=== PATIENT | female | born 1980 ===

== ENCOUNTER 2018-07-09 14:41 | Emergency (ER) | payer OTHER ==
[2018-07-09 15:12] VITALS: TEMP 98.3
[2018-07-09 16:40] LABS: BASO # 0.1 K/uL (0.0-0.2); BASO % 0.8 % (0.0-2.0); EOS # 0.1 K/uL (0.0-0.7); EOS % 1.1 % (0.0-4.0); HEMOGLOBIN 13.4 g/dL (12.0-16.0); LYMPH # 2.9 K/uL (1.0-4.3); LYMPH % 31.1 % (20.0-40.0); MEAN CELL VOLUME 84.7 fl (81.0-99.0); MEAN CORPUSCULAR HEMOGLOBIN 27.5 pg (27.0-31.0); MEAN CORPUSCULAR HGB CONC 32.5 g/dL (33.0-37.0); MEAN PLATELET VOLUME 7.7 fl (7.2-11.7); MONO # 0.6 K/uL (0.0-0.8); MONO % 6.6 % (0.0-10.0); NEUT # 5.7 K/uL (1.8-7.0); NEUT % 60.4 % (50.0-75.0); NRBC % 0.1 % (0.0-0.0); RBC 4.87 Mil/uL (3.80-5.20); RED CELL DISTRIBUTION WIDTH 14.1 % (11.5-14.5); WHITE BLOOD COUNT 9.4 K/uL (4.8-10.8)
[2018-07-09 16:49] LABS: ALB/GLOB RATIO 1.3 (1.0-2.1); ALBUMIN 4.7 g/dL (3.5-5.0); ALT/SGPT 39 U/L (9-52); AST/SGOT 34 U/L (14-36); BLOOD UREA NITROGEN 11 mg/dl (7-17); CALCIUM 9.2 mg/dL (8.4-10.2); GFR NON-AFRICAN AMERICAN > 60
--- NOTE | 2018-07-09 16:59 | RAD ---
Date of service: 07/09/2018 HISTORY: Dizziness COMPARISON: No prior. TECHNIQUE: Chest PA and lateral FINDINGS: LINES AND TUBES: None. LUNG AND PLEURA: The lungs are well inflated and clear. There is a subcentimeter calcified granuloma in the left mid lung. No pleural effusion or pneumothorax. HEART AND MEDIASTINUM: The heart is not enlarged. No aortic atherosclerotic calcification present. The hilar and mediastinal contours are within normal limits. SKELETAL STRUCTURES: The bony structures are within normal limits for the patient's age. VISUALIZED UPPER ABDOMEN: Normal. OTHER FINDINGS: None. IMPRESSION: No active pulmonary disease.
--- NOTE | 2018-07-09 17:30 | CT ---
Date of service: 07/09/2018 PROCEDURE: CT HEAD WITHOUT CONTRAST. HISTORY: Headache and dizziness COMPARISON: None available. TECHNIQUE: Axial computed tomography images were obtained through the head/brain without intravenous contrast. Radiation dose: Total exam DLP = 719.77 mGy-cm. This CT exam was performed using one or more of the following dose reduction techniques: Automated exposure control, adjustment of the mA and/or kV according to patient size, and/or use of iterative reconstruction technique. FINDINGS: HEMORRHAGE: No intracranial hemorrhage. BRAIN: Horn-white matter differentiation is preserved. There is no mass, mass effect or abnormal extra-axial fluid collection. There is no territorial infarction. The midline sagittal structures are normal. VENTRICLES: The ventricles are normal in size, shape and configuration. CALVARIUM: There is no calvarial fracture or extracranial soft tissue swelling. PARANASAL SINUSES: Predominantly clear. MASTOID AIR CELLS: Predominantly clear. OTHER FINDINGS: None. IMPRESSION: No acute intracranial abnormality.
--- NOTE | 2018-07-09 17:51 | CT ---
Date of service: 07/09/2018 PROCEDURE: CT Cervical Spine without contrast HISTORY: Neck pain, back pain. No history of trauma COMPARISON: None available. TECHNIQUE: Axial computed tomography images were obtained of the cervical spine without the use of intravenous contrast. Coronal and sagittal reformatted images were created and reviewed. Radiation dose: Total exam DLP = 245.85 mGy-cm. This CT exam was performed using one or more of the following dose reduction techniques: Automated exposure control, adjustment of the mA and/or kV according to patient size, and/or use of iterative reconstruction technique. FINDINGS: VERTEBRAE: No fracture. Normal alignment. No destructive bony lesion. DISCS/SPINAL CANAL/NEURAL FORAMINA: No significant central canal or neural foraminal stenosis. Discs heights are grossly preserved. PARASPINAL SOFT TISSUES: Unremarkable. OTHER FINDINGS: None. IMPRESSION: Unremarkable CT of the cervical spine. In this clinical setting, MRI would be more sensitive and accurate modality assessment of symptoms provided above.
--- NOTE | 2018-07-09 18:01 | ED PDOC ---
HPI: General Adult Time Seen by Provider: 07/09/18 15:27 Chief Complaint (Nursing): Dizziness/Lightheaded Chief Complaint (Provider): Headache, neck pain, dizziness History Per: Patient History/Exam Limitations: no limitations Onset/Duration Of Symptoms: Days Have you had recent travel within the past 21 days to any of the following countries: [place], [place], [place] or [place]?: No Current Symptoms Are (Timing): Still Present Additional Complaint(s): 37 yo female with no medical problems presents for evaluation of headache, dizziness and neck pain. PT reports headache for 3 months associated with dizziness. PT reports 2 weeks of neck pain worse when she looks up. PT states she has been taking tylenol for pain but it is not helping. PT also reports pain traveling down the right arm with extension of the neck. No chest pain, no SOB Past Medical History Reviewed: Historical Data, Nursing Documentation, Vital Signs Vital Signs: Last Vital Signs Temp 98.3 F 07/09/18 15:07 Pulse 53 L 07/09/18 15:07 Resp 16 07/09/18 15:07 BP 102/51 L 07/09/18 15:07 Pulse Ox 100 07/09/18 15:07 - Medical History PMH: Cardia Arrhythmia (Tachycardia, as per patient however bradycardia on EKG), HTN - Surgical History Surgical History: No Surg Hx - Family History Family History: States: No Known Family Hx - Living Arrangements Living Arrangements: With Family - Home Medications Home Medications: Ambulatory Orders Medication Instructions Recorded Cyclobenzaprine [Cyclobenzaprine 10 mg PO Q8H PRN #12 tab 07/09/18 HCl] Ibuprofen [Motrin Tab] 800 mg PO Q6H PRN #20 tab 07/09/18 - Allergies Allergies/Adverse Reactions: Allergies Allergy/AdvReac Type Severity Reaction Status Date / Time No Known Allergies Allergy Verified 07/09/18 15:07 Review of Systems ROS Statement: Except As Marked, All Systems Reviewed And Found Negative Constitutional: Negative for: Fever, Chills ENT: Negative for: Ear Discharge Cardiovascular: Negative for: Chest Pain, Palpitations, Orthopnea Respiratory: Negative for: Cough, Shortness of Breath Gastrointestinal: Negative for: Nausea, Vomiting, Abdominal Pain, Diarrhea Musculoskeletal: Positive for: Neck Pain Neurological: Positive for: Headache. Negative for: Weakness, Numbness Psych: Negative for: Anxiety Physical Exam - Reviewed Nursing Documentation Reviewed: Yes Vital Signs Reviewed: Yes - Physical Exam Appears: Positive for: Well, Non-toxic, No Acute Distress Head Exam: Positive for: ATRAUMATIC, NORMAL INSPECTION, NORMOCEPHALIC Skin: Positive for: Normal Color, Warm, DRY Eye Exam: Positive for: Normal appearance ENT: Positive for: Normal ENT Inspection Neck: Positive for: Normal, Painless ROM Cardiovascular/Chest: Positive for: Regular Rate, Rhythm Respiratory: Positive for: Normal Breath Sounds. Negative for: Accessory Muscle Use, Respiratory Distress Back: Positive for: Normal Inspection, Vertebral Tenderness (C-spine ) Extremity: Positive for: Normal ROM. Negative for: Deformity, Swelling Neurologic/Psych: Positive for: Alert, Oriented - Laboratory Results Result Diagrams: 07/09/18 16:34 07/09/18 16:34 - ECG O2 Sat by Pulse Oximetry: 100 Pulse Ox Interpretation: Normal Medical Decision Making Medical Decision Making: Head and neck CT normal. Urine preg (-) Urine dip normal. Pt feels better on re-evaluation. Disposition - Clinical Impression Clinical Impression: Muscular pain - Patient ED Disposition Is Patient to be Admitted: No Counseled Patient/Family Regarding: Diagnosis, Need For Followup, Rx Given - Disposition Disposition: Routine/Home Disposition Time: 18:41 Condition: GOOD Prescriptions: Cyclobenzaprine [Cyclobenzaprine HCl] 10 mg PO Q8H PRN #12 tab PRN Reason: Muscle Spasm Ibuprofen [Motrin Tab] 800 mg PO Q6H PRN #20 tab PRN Reason: Pain Instructions: Muscle and Bone Pain (DC) Forms: [employer] (Serbian)
[2018-07-09 20:03] VITALS: BP 107/61; PULSE 60; RESP 17; O2SAT 99
--- NOTE | 2018-07-10 08:00 | CARD ---
APPROVED REPORT Date of service: 07/09/2018 EKG Measurement Heart [id number] CO [id number] <Conclusion> Sinus bradycardia Otherwise normal ECG
== END 2018-07-09 20:03 | disposition home or self-care (01) ==
LOC: H.ER 14:41
DX: M79.18 Myalgia, other site (principal); I10 Essential (primary) hypertension

== ENCOUNTER 2018-08-20 13:50 | Inpatient (IN) | payer MEDICAID, SELFPAY ==
--- NOTE | 2018-08-20 14:29 | ED PDOC ---
HPI: General Adult Time Seen by Provider: 08/20/18 14:12 Chief Complaint (Nursing): Fever History Per: Patient Additional Complaint(s): Referred from [facility] for evaluation of possible active TB. Pt is from [facility] and has been having sxs of non-productive cough assoc with intermittent fever. Cough has been present x 3 weeks. Denies SOB. Has had 8 lb weight loss since Aug 10. Denies night sweats. Multiple CXRs done with granuloma seen 07/09. Past Medical History Vital Signs: Last Vital Signs Temp 98.0 F 08/20/18 13:57 Pulse 58 L 08/20/18 13:57 Resp 16 08/20/18 13:57 BP 115/60 08/20/18 13:57 Pulse Ox 98 08/20/18 13:57 - Medical History PMH: Cardia Arrhythmia (Tachycardia, as per patient however bradycardia on EKG), HTN - Family History Family History: States: Unknown Family Hx - Home Medications Home Medications: Ambulatory Orders Medication Instructions Recorded Cyclobenzaprine [Cyclobenzaprine 10 mg PO Q8H PRN #12 tab 07/09/18 HCl] Ibuprofen [Motrin Tab] 800 mg PO Q6H PRN #20 tab 07/09/18 - Allergies Allergies/Adverse Reactions: Allergies Allergy/AdvReac Type Severity Reaction Status Date / Time No Known Allergies Allergy Verified 08/20/18 13:56 Review of Systems ROS Statement: Except As Marked, All Systems Reviewed And Found Negative Constitutional: Positive for: Fever, Weight loss Respiratory: Positive for: Cough Physical Exam - Reviewed Nursing Documentation Reviewed: Yes Vital Signs Reviewed: Yes - Physical Exam Appears: Positive for: Non-toxic, No Acute Distress Head Exam: Positive for: ATRAUMATIC, NORMAL INSPECTION, NORMOCEPHALIC Skin: Positive for: Normal Color, Warm, DRY Eye Exam: Positive for: EOMI, Normal appearance, PERRL ENT: Positive for: Normal ENT Inspection Neck: Positive for: Normal, Painless ROM Cardiovascular/Chest: Positive for: Regular Rate, Rhythm Respiratory: Positive for: CNT, Normal Breath Sounds Gastrointestinal/Abdominal: Positive for: Normal Exam, Soft Back: Positive for: Normal Inspection Extremity: Positive for: Normal ROM Lymphatic: Negative for: Adenopathy Neurologic/Psych: Positive for: Alert, Oriented - Laboratory Results Result Diagrams: 08/20/18 14:27 08/20/18 14:27 - ECG O2 Sat by Pulse Oximetry: 98 Disposition - Clinical Impression Clinical Impression: Cough - Patient ED Disposition Is Patient to be Admitted: Yes - Disposition Disposition Time: 16:05 Condition: FAIR Forms: [facility] (Croatian) - Pt Status Changed To: Hospital Disposition Of: Inpatient - Admit Certification Admit to Inpatient:: After my assessment, the patient will require hospitalization for at least two midnights. This is because of the severity of symptoms shown, intensity of services needed, and/or the medical risk in this p atient being treated as an outpatient. - POA Present On Arrival: None
[2018-08-20 14:31] LABS: BASO # 0.1 K/uL (0.0-0.2); BASO % 0.6 % (0.0-2.0); EOS # 0.2 K/uL (0.0-0.7); EOS % 1.9 % (0.0-4.0); HEMOGLOBIN 12.9 g/dL (12.0-16.0); LYMPH # 2.6 K/uL (1.0-4.3); LYMPH % 27.3 % (20.0-40.0); MEAN CELL VOLUME 86.7 fl (81.0-99.0); MEAN CORPUSCULAR HEMOGLOBIN 27.9 pg (27.0-31.0); MEAN CORPUSCULAR HGB CONC 32.2 g/dL (33.0-37.0); MEAN PLATELET VOLUME 7.6 fl (7.2-11.7); MONO # 0.5 K/uL (0.0-0.8); MONO % 5.1 % (0.0-10.0); NEUT # 6.2 K/uL (1.8-7.0); NEUT % 65.1 % (50.0-75.0); NRBC % 0.1 % (0.0-0.0); RBC 4.62 Mil/uL (3.80-5.20); RED CELL DISTRIBUTION WIDTH 14.1 % (11.5-14.5); WHITE BLOOD COUNT 9.6 K/uL (4.8-10.8)
[2018-08-20 14:54] LABS: BLOOD UREA NITROGEN 11 mg/dl (7-17); CALCIUM 9.3 mg/dL (8.4-10.2); GFR NON-AFRICAN AMERICAN > 60
[2018-08-20 14:55] LABS: ALB/GLOB RATIO 1.2 (1.0-2.1); ALBUMIN 4.6 g/dL (3.5-5.0); ALT/SGPT 41 U/L (9-52); AST/SGOT 71 U/L (14-36)
--- NOTE | 2018-08-20 16:08 | RAD ---
Date of service: 08/20/2018 HISTORY: cough +ve quanteferon gold COMPARISON: 07/09/2018 FINDINGS: LUNGS: The left mid lung zone approximately 5 mm nodule compatible with a granuloma is unchanged with the prior exam. No interval nodules are cavity seen. No interval consolidation noted. No pleural effusion PLEURA: Seen. CARDIOVASCULAR: No aortic atherosclerotic calcification present. Normal cardiac size. No pulmonary vascular congestion. No hilar or mediastinal lymphadenopathy noted. OSSEOUS STRUCTURES: No significant abnormalities. VISUALIZED UPPER ABDOMEN: Normal. OTHER FINDINGS: None. IMPRESSION: Left mid lung zone 4 to 5 mm granuloma. Unchanged. No interval nodules consolidation, hilar mediastinal lymphadenopathy seen. No cavitary lesions noted.
[2018-08-20] MEDS ORDERED: Sodium Chloride 3% for Inhalation 4 ML VIAL.NEB IH PRN (16:40)
--- NOTE | 2018-08-20 16:55 | CP.PCM.HP ---
<Randall Davies - Last Filed: 08/20/18 17:02> History of Present Illness - History of Present Illness History of Present Illness: HPI: Pt is a 37 y/o female with hx of a Incidental granuloma found on Cxray (07/08/18) and + Quanteferon sent to ED from chest clinic as patient reported cough, fever/chills, and weight loss in last 2 weeks. She denies any recent travel. States her two children at home are also sick with cough and occasional fevers. She denies hemoptysis or night sweats. PMHX: Chronic neck and R. shoulder pain PSurgHx: denies FmHx: denies Social: Lives with and 5 children (1 son and 4 daughters) never smoked, denies heavy alcohol use, immigrated from [facility] years ago ED Course: Vitals stable, O2 sat 99 on rm air Pt does not appear to be in any respiratory distress CBC: 9.6>12.9/40<333 CMP: WNL, AST- 71 Cxray: 5mm nodule in left lung mid zone, no interval change in size, no cavitary lesions or infiltrates ID Consulted, Dr. Bar- Rule out active TB with 3 AFB Culture Present on Admission - Present on Admission Any Indicators Present on Admission: No Past Patient History - Past Social History Smoking Status: Never Smoked - CARDIAC Hx Cardia Arrhythmia: Yes (Tachycardia, as per patient however bradycardia on EKG) Hx Hypertension: Yes - PSYCHIATRIC Hx Substance Use: No - SURGICAL HISTORY Hx Surgeries: Yes Hx Tubal Ligation: Yes - ANESTHESIA Hx Anesthesia: Yes Meds Allergies/Adverse Reactions: Allergies Allergy/AdvReac Type Severity Reaction Status Date / Time No Known Allergies Allergy Verified 08/20/18 13:56 Physical Exam - Constitutional Appears: No Acute Distress - Eye Exam Eye Exam: Normal appearance - ENT Exam ENT Exam: Mucous Membranes Moist - Respiratory Exam Respiratory Exam: Clear to Auscultation Bilateral. absent: Accessory Muscle Use, Rales, Wheezes - Cardiovascular Exam Cardiovascular Exam: REGULAR RHYTHM, +S1, +S2. absent: Systolic Murmur - GI/Abdominal Exam GI & Abdominal Exam: Soft. absent: Tenderness - Extremities Exam Extremities exam: Negative for: pedal edema - Neurological Exam Neurological exam: Alert, Oriented x3 - Psychiatric Exam Psychiatric exam: Normal Affect - Skin Skin Exam: Normal Color Results - Vital Signs Recent Vital Signs: Last Vital Signs Temp 98.0 F 08/20/18 13:57 Pulse 58 L 08/20/18 13:57 Resp 16 08/20/18 13:57 BP 115/60 08/20/18 13:57 Pulse Ox 98 08/20/18 16:05 - Labs Result Diagrams: 08/20/18 14:27 08/20/18 14:27 Labs: Laboratory Results - last 24 hr 08/20/18 08/20/18 14:27 14:27 WBC 9.6 RBC 4.62 Hgb 12.9 Hct 40.0 MCV 86.7 D MCH 27.9 MCHC 32.2 L RDW 14.1 Plt Count 333 MPV 7.6 Neut % (Auto) 65.1 Lymph % (Auto) 27.3 Casey % (Auto) 5.1 Eos % (Auto) 1.9 Baso % (Auto) 0.6 Neut # (Auto) 6.2 Lymph # (Auto) 2.6 Casey # (Auto) 0.5 Eos # (Auto) 0.2 Baso # (Auto) 0.1 Sodium 138 Potassium 4.8 Chloride 103 Carbon Dioxide 26 Anion Gap 14 BUN 11 Creatinine 0.6 L Est GFR ( Amer) > 60 Est GFR (Non-Af Amer) > 60 Random Glucose 90 Calcium 9.3 Total Bilirubin 0.5 AST 71 H D ALT 41 Alkaline Phosphatase 88 Total Protein 8.6 H Albumin 4.6 Globulin 3.9 Albumin/Globulin Ratio 1.2 Assessment & Plan - Assessment and Plan (Free Text) Assessment: Pt is a 37 y/o female with hx of a Incidental granuloma found on Cxray (07/08/18) and + Quanteferon sent to ED from chest clinic as patient reported cough, fever/chills, and weight loss in last 2 weeks. #Cough #Granuloma on Chest Xray, 5mm, no cavitary lesions #Quantiferon + -Need to assess if pt has Active vs Latent TB -AFB Culture x3 -Airborne Isolation -ID on board, Dr. Bar -Monitor Respiratory Status Discussed case with Dr. Hart <Sean Hart D - Last Filed: 08/20/18 19:22> Results - Vital Signs Recent Vital Signs: Last Vital Signs Temp 98.0 F 08/20/18 13:57 Pulse 73 08/20/18 16:43 Resp 18 08/20/18 16:43 BP 117/67 08/20/18 16:43 Pulse Ox 99 08/20/18 16:43 - Labs Result Diagrams: 08/20/18 14:27 08/20/18 14:27 Labs: Laboratory Results - last 24 hr 08/20/18 08/20/18 08/20/18 14:27 14:27 17:52 WBC 9.6 RBC 4.62 Hgb 12.9 Hct 40.0 MCV 86.7 D MCH 27.9 MCHC 32.2 L RDW 14.1 Plt Count 333 MPV 7.6 Neut % (Auto) 65.1 Lymph % (Auto) 27.3 Casey % (Auto) 5.1 Eos % (Auto) 1.9 Baso % (Auto) 0.6 Neut # (Auto) 6.2 Lymph # (Auto) 2.6 Casey # (Auto) 0.5 Eos # (Auto) 0.2 Baso # (Auto) 0.1 Sodium 138 Potassium 4.8 Chloride 103 Carbon Dioxide 26 Anion Gap 14 BUN 11 Creatinine 0.6 L Est GFR ( Amer) > 60 Est GFR (Non-Af Amer) > 60 Random Glucose 90 Calcium 9.3 Total Bilirubin 0.5 AST 71 H D ALT 41 Alkaline Phosphatase 88 Total Protein 8.6 H Albumin 4.6 Globulin 3.9 Albumin/Globulin Ratio 1.2 Influenza Typ A,B (EIA) Negative for flu a/b Attending/Attestation - Attestation I have personally seen and examined this patient.: Yes I have fully participated in the care of the patient.: Yes I have reviewed all pertinent clinical information: Yes Notes (Text): 08/20/18 19:13 Patient seen and examined with resident. Case discussed and agreed with assessment and plan of management. Patient was seen in [facility] and was found to have granulomatous lesion and was reactive with quantiferon test for TB. She was referred to Chest Clinic who in turn referred her here to be put on isolation while waiting for 3 sets of sputum AFB. Patient admitted to dry cough and loss of weight.
--- NOTE | 2018-08-20 17:11 | CP.PCM.CON ---
History of Present Illness - History of Present Illness History of Present Illness: 37 y/o female sent to ED from [facility] chest clinic because patient reported cough, fever/chills, and weight loss in last 2 weeks. work up revealed small granuloma and + Quantiferon Because of this she was advised to come to ER She is now being admittewd to isolation bed to r/o active TB If active infection ruled out by 3 negative smears she can take INH prophylaxis for latent TB PMHX: Chronic neck and shoulder pain Travel - negative PSurgHx: denies FmHx: denies Social: Lives with and 5 children (1 son and 4 daughters) never smoked, denies heavy alcohol use, immigrated from [place] [facility] [place] years ago Review of Systems - Review of Systems All systems: reviewed and no additional remarkable complaints except - Constitutional Constitutional: As Per HPI - EENT Eyes: absent: As Per HPI, Blind Spots, Blurred Vision, Change in Vision, Decreased Night Vision, Diplopia, Discharge, Dry Eye, Exophthalmos, Floaters, Irritation, Itchy Eyes, Loss of Peripheral Vision, Pain, Photophobia, Requires Corrective Lenses, Sees Flashes, Spots in Vision, Tunnel Vision, Other Visual Disturbances, Loss of Vision, Other Ears: absent: As Per HPI, Decreased Hearing, Ear Discharge, Ear Pain, Tinnitus, Abnormal Hearing, Disequilibrium, Dizziness, Other Nose/Mouth/Throat: absent: As Per HPI, Epistaxis, Nasal Congestion, Nasal Di scharge, Nasal Obstruction, Nasal Trauma, Nose Pain, Post Nasal Drip, Sinus Pain, Sinus Pressure, Bleeding Gums, Change in Voice, Dental Pain, Dry Mouth, Dysphagia, Halitosis, Hoarsness, Lip Swelling, Mouth Lesions, Mouth Pain, Odynophagia, Sore Throat, Throat Swelling, Tongue Swelling, Facial Pain, Neck Pain, Neck Mass, Other - Breasts Breasts: absent: As Per HPI, Change in Shape, Mass, Pain, Nipple Discharge, Nipple Inversion, Skin Changes, Swelling, Other - Cardiovascular Cardiovascular: absent: As Per HPI, Acrocyanosis, Chest Pain, Chest Pain at Rest, Chest Pain with Activity, Claudication, Diaphoresis, Dyspnea, Dyspnea on Exertion, Edema, Irregular Heart Rhythm, Pain Radiating to Arm/Neck/Jaw, Leg Edema, Leg Ulcers, Lightheadedness, Orthopnea, Palpitations, Paroxysmal Nocturnal Dyspnea, Pedal Edema, Radiating Pain, Rapid Heart Rate, Slow Heart Rate, Syncope, Other - Respiratory Respiratory: As Per HPI - Gastrointestinal Gastrointestinal: absent: As Per HPI, Abdominal Pain, Belching, Bloating, Change in Bowel Habits, Change in Stool Character, Coffee Ground Emesis, Constipation, Cramping, Diarrhea, Dyspepsia, Dysphagia, Early Satiety, Excessive Flatus, Fecal Incontinence, Heartburn, Hematemesis, Hematochezia, Loose Stools, Melena, Nausea, Odynophagia, Temesmus, Vomiting, Other - Genitourinary Genitourinary: absent: As Per HPI, Change in Urinary Stream, Difficulty Urinating, Dysuria, Flank Pain, Hematuria, Pyuria, Nocturia, Urinary Incontinence, Urinary Frequency, Urinary Hesitance, Urinary Urgency, Voiding Freq/Small Amts, Freq UTI, Hx Renal/Bladder Calculi, Hx /Renal Surgery, Bladder Distension, Other - Reproductive: Female Reproductive:Female: absent: As Per HPI, Amenorrhea, Amenorrhea/ Control, Currently Menstual, Cycle <21 Days, Cycle >35 Days, Cycle Variable, Menses 1-7 Days, Menses >/= 8 Days, Menses Variable, Cycle > 4 Weeks Between, No Menses for 6 Months, Heavy Menses, Light Menses, Normal Menses, Spotting Between Cycles, S/P Hysterectomy, Menopausal, Post Menopausal, Premenarche, Abnormal Vaginal Bleeding, Dysmenorrhea, Dyspareunia, Genital Lesions, Genital Pruritis, Pelvic Pain, Prolapse Symptoms, Sexual Dysfunction, Vaginal Discharge, Vaginal Dryness, Vaginal Odor, Vaginal Pruritis, Other - Menstruation Menstruation: absent: As Per HPI, Amenorrhea, Amenorrhea/ Control, Currently Menstual, Cycle <21 Days, Cycle >35 Days, Cycle Variable, Menses 1-7 Days, Menses >/= 8 Days, Menses Variable, Cycle > 4 Weeks Between, No Menses for 6 Months, Heavy Menses, Light Menses, Normal Menses, Spotting Between Cycles, S/P Hysterectomy, Menopausal, Post Menopausal, Premenarche, Abnormal Vaginal Bleeding, Dysmenorrhea, Other - Musculoskeletal Musculoskeletal: absent: As Per HPI, Abnormal Gait, Arthralgias, Atrophy, Back Pain, Deformity, Joint Swelling, Limited Range of Motion, Loss of Height, Muscle Cramps, Muscle Weakness, Myalgias, Neck Pain, Numbness, Radiating Pain into Limb, Stiffness, Tingling, Other - Integumentary Integumentary: absent: As Per HPI, Acne, Alopecia, Bleeding Lesions, Change in Hair, Change in Nails, Change in Pigmentation, Changing Lesions, Dry Skin, Erythema, Furuncle, Hirsutism, Lesions, New Lesions, Non-Healing Lesions, Photosensitivity, Pruritus, Rash, Skin Pain, Skin Ulcer, Sores, Striae, Swelling, Unusual Bruising, Wounds, Jaundice, Other - Neurological Neurological: absent: As Per HPI, Abnormal Gait, Abnormal Hearing, Abnormal Movements, Abnormal Speech, Behavioral Changes, Burning Sensations, Confusion, Convulsions, Disequilibrium, Dizziness, Numbness, Focal Weakness, Frequent Falls, Headaches, Lack of Coordination, Loss of Vision, Memory Loss, Paresthesias, Radicular Pain, Restless Legs, Sensory Deficit, Syncope, Tingling, Tremor, Vertigo, Weakness, Other Visual Disturbances, Other - Psychiatric Psychiatric: absent: As Per HPI, Abnormal Sleep Pattern, Anhedonia, Anxiety, Auditory Hallucinations, Behavioral Changes, Change in Appetite, Change in Libido, Confusion, Depression, Difficulty Concentrating, Hallucinations, Homicidal Ideation, Hopelessness, Irritability, Memory Loss, Mood Swings, Panic Attacks, Paranoia, Suicidal Ideation, Visual Hallucinations, Tactile Hallucinations, Other - Endocrine Endocrine: absent: As Per HPI, Change in Body Appearance, Change in Libido, Cold Intolorance, Deepening of Voice, Excessive Sweating, Fatigue, Flushing, Heat Intolorance, Increase in Ring/Shoe/Hat Size, Palpitations, Polydipsia, Polyphagia, Polyuria, Other - Hematologic/Lymphatic Hematologic: absent: As Per HPI, Easy Bleeding, Easy Bruising, Lymphadenopathy, Other Past Patient History - Past Social History Smoking Status: Never Smoked - CARDIAC Hx Cardia Arrhythmia: Yes (Tachycardia, as per patient however bradycardia on EKG) Hx Hypertension: Yes - PSYCHIATRIC Hx Substance Use: No - SURGICAL HISTORY Hx Surgeries: Yes Hx Tubal Ligation: Yes - ANESTHESIA Hx Anesthesia: Yes Meds Allergies/Adverse Reactions: Allergies Allergy/AdvReac Type Severity Reaction Status Date / Time No Known Allergies Allergy Verified 08/20/18 13:56 - Medications Medications: Current Medications Acetaminophen (Tylenol 325mg Tab) 650 mg PO Q6 PRN PRN Reason: Pain, Mild (1-3) Physical Exam - Constitutional Appears: Non-toxic, Chronically Ill - Head Exam Head Exam: NORMOCEPHALIC - Eye Exam Eye Exam: absent: Scleral icterus - ENT Exam ENT Exam: Mucous Membranes Dry - Neck Exam Neck exam: Negative for: Lymphadenopathy - Respiratory Exam Respiratory Exam: Decreased Breath Sounds - Cardiovascular Exam Cardiovascular Exam: REGULAR RHYTHM - GI/Abdominal Exam GI & Abdominal Exam: Diminished Bowel Sounds, Soft. absent: Tenderness - Rectal Exam Rectal Exam: Deferred - Exam Exam: NORMAL INSPECTION - Extremities Exam Extremities exam: Positive for: pedal pulses present. Negative for: calf tenderness, pedal edema - Back Exam Back exam: absent: CVA tenderness (L), CVA tenderness (R) - Neurological Exam Neurological exam: Alert, CN II-XII Intact, Oriented x3, Reflexes Normal - Psychiatric Exam Psychiatric exam: Normal Mood - Skin Skin Exam: Dry Results - Vital Signs Recent Vital Signs: Last Vital Signs Temp 98.0 F 08/20/18 13:57 Pulse 58 L 08/20/18 13:57 Resp 16 08/20/18 13:57 BP 115/60 08/20/18 13:57 Pulse Ox 98 08/20/18 16:05 - Labs Result Diagrams: 08/20/18 14:27 08/20/18 14:27 Labs: Laboratory Results - last 24 hr 08/20/18 08/20/18 14:27 14:27 WBC 9.6 RBC 4.62 Hgb 12.9 Hct 40.0 MCV 86.7 D MCH 27.9 MCHC 32.2 L RDW 14.1 Plt Count 333 MPV 7.6 Neut % (Auto) 65.1 Lymph % (Auto) 27.3 [place] % (Auto) 5.1 Eos % (Auto) 1.9 Baso % (Auto) 0.6 Neut # (Auto) 6.2 Lymph # (Auto) 2.6 [place] # (Auto) 0.5 Eos # (Auto) 0.2 Baso # (Auto) 0.1 Sodium 138 Potassium 4.8 Chloride 103 Carbon Dioxide 26 Anion Gap 14 BUN 11 Creatinine 0.6 L Est GFR ( Amer) > 60 Est GFR (Non-Af Amer) > 60 Random Glucose 90 Calcium 9.3 Total Bilirubin 0.5 AST 71 H D ALT 41 Alkaline Phosphatase 88 Total Protein 8.6 H Albumin 4.6 Globulin 3.9 Albumin/Globulin Ratio 1.2 Assessment & Plan (1) Positive QuantiFERON-TB Gold test Status: Acute (2) Abnormal chest xray Status: Acute - Assessment and Plan (Free Text) Assessment: r/o latent vs active TB await sputum smears if smears neg x 3 can be discharged to follow in chest clinic
[2018-08-20 22:10] VITALS: BMI 23.4
[2018-08-20] MEDS: Sodium Chloride 3% for Inhalation 4 ML VIAL.NEB IH PRN (22:49)
[2018-08-21] MEDS ORDERED: Influenza Vaccine (5 YR UP)/PF 60 MCG/0.5 ML SYR IM ONE (06:30)
[2018-08-21] MEDS ORDERED: Influenza Vaccine 60 mcg/0.5 mL SYR (4YR UP) IM ONE (06:30)
[2018-08-21] MEDS ORDERED: Pneumococcal 23-Valent Vaccine IM ONE (06:30)
[2018-08-21] MEDS: Sodium Chloride 3% for Inhalation 4 ML VIAL.NEB IH PRN (06:36)
--- NOTE | 2018-08-21 11:44 | CP.PCM.PN ---
<Randall Davies - Last Filed: 08/21/18 11:44> Subjective - Date & Time of Evaluation Date of Evaluation: 08/21/18 Time of Evaluation: 08:00 - Subjective Subjective: Pt seen and examined this morning in respiratory isolation. Complains of cough with small yellow/green sputum that is improving. Denies hemoptysis/fever/chills. Discussed plan with patient. 2 AFB cultures collected, will collect 3rd sample in the afternoon. Advised her to have her children taken to [facility] to be screened in light of possible TB exposure and similar symptoms. Objective - Vital Signs/Intake and Output Vital Signs (last 24 hours): Temp Pulse Resp BP Pulse Ox 97.3 F L 55 L 20 104/61 98 08/21/18 08:03 08/21/18 08:03 08/21/18 08:03 08/21/18 08:03 08/21/18 08:03 - Medications Medications: Current Medications Acetaminophen (Tylenol 325mg Tab) 650 mg PO Q6 PRN PRN Reason: Pain, Mild (1-3) Last Admin: 08/20/18 22:41 Dose: 650 mg - Labs Labs: 08/20/18 14:27 08/20/18 14:27 - Constitutional Appears: No Acute Distress - Head Exam Head Exam: NORMAL INSPECTION - Eye Exam Eye Exam: Normal appearance - ENT Exam ENT Exam: Mucous Membranes Moist - Neck Exam Neck Exam: absent: Lymphadenopathy - Respiratory Exam Respiratory Exam: Clear to Ausculation Bilateral. absent: Accessory Muscle Use, Rales, Wheezes - Cardiovascular Exam Cardiovascular Exam: REGULAR RHYTHM, +S1, +S2. absent: Murmur - GI/Abdominal Exam GI & Abdominal Exam: Soft, Normal Bowel Sounds - Extremities Exam Extremities Exam: absent: Pedal Edema - Neurological Exam Neurological Exam: Alert - Psychiatric Exam Psychiatric exam: Normal Affect - Skin Skin Exam: Normal Color Assessment and Plan - Assessment and Plan (Free Text) Assessment: Pt is a 37 y/o female with hx of a Incidental granuloma found on Cxray (07/08/18) and + Quanteferon sent to ED from chest clinic as patient reported cough, fever/chills, and weight loss in last 2 weeks. #Cough #Granuloma on Chest Xray, 5mm, no cavitary lesions #Quantiferon + -Need to assess if pt has Active vs Latent TB -AFB Culture x3 -Airborne Isolation -ID on board, Dr. Bar -Monitor Respiratory Status Discussed case with Dr. Hart <Sean Hart - Last Filed: 08/21/18 13:39> Objective - Vital Signs/Intake and Output Vital Signs (last 24 hours): Temp Pulse Resp BP Pulse Ox 97.5 F L 53 L 20 104/57 L 99 08/21/18 12:04 08/21/18 12:04 08/21/18 12:04 08/21/18 12:04 08/21/18 12:04 - Medications Medications: Current Medications Acetaminophen (Tylenol 325mg Tab) 650 mg PO Q6 PRN PRN Reason: Pain, Mild (1-3) Last Admin: 08/20/18 22:41 Dose: 650 mg - Labs Labs: 08/20/18 14:27 08/20/18 14:27 Attending/Attestation - Attestation I have personally seen and examined this patient.: Yes I have fully participated in the care of the patient.: Yes I have reviewed all pertinent clinical information, including history, physical exam and plan: Yes Notes (Text): 08/21/18 13:37 Patient seen and examined with resident. Case discussed and agreed with assessment. Continue respiratory isolation until 3 sputums are negative for AFB.
[2018-08-21 11:54] LABS: HEPATITIS B SURFACE AG Negative (NEGATIVE)
[2018-08-21 12:00] LABS: HEPATITIS A IGM NEGATIVE (NEGATIVE); HEPATITIS B CORE AB NEGATIVE (NEGATIVE)
[2018-08-21 12:12] LABS: HEPATITIS C ANTIBODY NEGATIVE (NEGATIVE)
[2018-08-22] MEDS ORDERED: Alum-Mag Hydrox-Simethicone Susp (30 mL) PO ONE (10:19)
--- NOTE | 2018-08-22 10:26 | CP.PCM.PN ---
<Randall Davies - Last Filed: 08/22/18 10:28> Subjective - Date & Time of Evaluation Date of Evaluation: 08/22/18 Time of Evaluation: 08:00 - Subjective Subjective: Pt seen and examined this am. Reports epigastric abdominal pain, burning in quality. Has non productieve cough but improving. Discussed results of AFB cultures with lab staff, only 1 specimen was sent out to [facility] (pending report) as the 2 specimens were just sent to the lab this morning. Objective - Vital Signs/Intake and Output Vital Signs (last 24 hours): Temp Pulse Resp BP Pulse Ox 97.8 F 60 18 105/58 L 100 08/22/18 07:59 08/22/18 07:59 08/22/18 07:59 08/22/18 07:59 08/22/18 07:59 - Medications Medications: Current Medications Acetaminophen (Tylenol 325mg Tab) 650 mg PO Q6 PRN PRN Reason: Pain, Mild (1-3) Last Admin: 08/20/18 22:41 Dose: 650 mg Ondansetron HCl (Zofran Odt) 4 mg PO Q8H PRN PRN Reason: Nausea/Vomiting - Labs Labs: 08/20/18 14:27 08/20/18 14:27 - Constitutional Appears: No Acute Distress - Head Exam Head Exam: NORMAL INSPECTION - Eye Exam Eye Exam: Normal appearance - ENT Exam ENT Exam: Mucous Membranes Moist - Respiratory Exam Respiratory Exam: Clear to Ausculation Bilateral. absent: Rales, Wheezes - Cardiovascular Exam Cardiovascular Exam: REGULAR RHYTHM, +S1, +S2 - GI/Abdominal Exam GI & Abdominal Exam: Soft, Normal Bowel Sounds. absent: Tenderness - Extremities Exam Extremities Exam: Pedal Edema - Neurological Exam Neurological Exam: Alert, Normal Gait - Psychiatric Exam Psychiatric exam: Normal Affect - Skin Skin Exam: Normal Color Assessment and Plan - Assessment and Plan (Free Text) Assessment: Pt is a 37 y/o female with hx of a Incidental granuloma found on Cxray (07/08) and + Quanteferon sent to ED from chest clinic as patient reported cough, fever/chills, and weight loss in last 2 weeks. #Cough #Granuloma on Chest Xray, 5mm, no cavitary lesions #Quantiferon + -Need to assess if pt has Active vs Latent TB -AFB Culture x3 ordered--Followed up results with lab today,1 specimen sent to [facility], other 2 will be sent today -Airborne Isolation -ID on board, Dr. Bar -Monitor Respiratory Status Discussed case with Dr. Hart <Sean Hart - Last Filed: 08/22/18 12:54> Objective - Vital Signs/Intake and Output Vital Signs (last 24 hours): Temp Pulse Resp BP Pulse Ox 98.0 F 67 18 115/70 99 08/22/18 11:53 08/22/18 11:53 08/22/18 11:53 08/22/18 11:53 08/22/18 11:53 - Medications Medications: Current Medications Acetaminophen (Tylenol 325mg Tab) 650 mg PO Q6 PRN PRN Reason: Pain, Mild (1-3) Last Admin: 08/20/18 22:41 Dose: 650 mg Ondansetron HCl (Zofran Odt) 4 mg PO Q8H PRN PRN Reason: Nausea/Vomiting - Labs Labs: 08/20/18 14:27 08/20/18 14:27 Attending/Attestation - Attestation I have personally seen and examined this patient.: Yes I have fully participated in the care of the patient.: Yes I have reviewed all pertinent clinical information, including history, physical exam and plan: Yes Notes (Text): 08/22/18 12:54 Patient seen and examined with resident case discussed and agreed with assessm ent.
--- NOTE | 2018-08-22 14:43 | CP.PCM.PN ---
Subjective - Date & Time of Evaluation Date of Evaluation: 08/22/18 Time of Evaluation: 09:00 - Subjective Subjective: only 1/3 specimens sent to [facility] occ nonspecific complaints Objective - Vital Signs/Intake and Output Vital Signs (last 24 hours): Temp Pulse Resp BP Pulse Ox 98.0 F 67 18 115/70 99 08/22/18 11:53 08/22/18 11:53 08/22/18 11:53 08/22/18 11:53 08/22/18 11:53 - Medications Medications: Current Medications Acetaminophen (Tylenol 325mg Tab) 650 mg PO Q6 PRN PRN Reason: Pain, Mild (1-3) Last Admin: 08/20/18 22:41 Dose: 650 mg Ondansetron HCl (Zofran Odt) 4 mg PO Q8H PRN PRN Reason: Nausea/Vomiting - Labs Labs: 08/20/18 14:27 08/20/18 14:27 - Constitutional Appears: Well - Head Exam Head Exam: ATRAUMATIC, NORMAL INSPECTION, NORMOCEPHALIC - Eye Exam Eye Exam: EOMI, Normal appearance, PERRL Pupil Exam: NORMAL ACCOMODATION, PERRL - ENT Exam ENT Exam: Mucous Membranes Moist, Normal Exam - Neck Exam Neck Exam: Full ROM, Normal Inspection. absent: Lymphadenopathy - Respiratory Exam Respiratory Exam: Clear to Ausculation Bilateral, NORMAL BREATHING PATTERN - Cardiovascular Exam Cardiovascular Exam: REGULAR RHYTHM, +S1, +S2. absent: Murmur - GI/Abdominal Exam GI & Abdominal Exam: Soft, Normal Bowel Sounds. absent: Tenderness - Rectal Exam Rectal Exam: NORMAL INSPECTION - Extremities Exam Extremities Exam: Full ROM, Normal Capillary Refill, Normal Inspection. absent: Joint Swelling, Pedal Edema - Back Exam Back Exam: NORMAL INSPECTION - Neurological Exam Neurological Exam: Alert, Awake, CN II-XII Intact, Normal Gait, Oriented x3 - Psychiatric Exam Psychiatric exam: Normal Affect, Normal Mood - Skin Skin Exam: Dry, Intact, Normal Color, Warm Assessment and Plan (1) Positive QuantiFERON-TB Gold test Status: Acute (2) Abnormal chest xray Status: Acute - Assessment and Plan (Free Text) Assessment: await smears
[2018-08-23 07:39] VITALS: RESP 18
[2018-08-23] MEDS ORDERED: Amoxicillin-Clav 875-125 mg Tab PO STA (10:14)
[2018-08-23] MEDS ORDERED: Benzocaine/Menthol (Cepacol) Lozenge PO PRN (10:15)
[2018-08-23] MEDS ORDERED: Albuterol 0.042% Inhal Sol (1.25 mg/3 mL) UD INH SCH (10:30)
[2018-08-23] MEDS: guaiFENesin-DM 600-30 mg ER Tab PO SCH ×2 (12:05→18:10)
--- NOTE | 2018-08-23 12:47 | CP.PCM.PN ---
<Randall Davies - Last Filed: 08/23/18 12:43> Subjective - Date & Time of Evaluation Date of Evaluation: 08/23/18 Time of Evaluation: 08:00 - Subjective Subjective: Pt seen and examined this morning. Reports that her cough has worsened since yesterday. Denies hemoptysis, fever/chills, sob, or chest pain. Called lab to f/u on AFB cultures. First AFB Cx is negative, Sputum Cx growing GPC, 2 AFB Cx pending. Objective - Vital Signs/Intake and Output Vital Signs (last 24 hours): Temp Pulse Resp BP Pulse Ox 97.9 F 82 18 110/67 99 08/23/18 11:47 08/23/18 11:47 08/23/18 11:47 08/23/18 11:47 08/23/18 11:47 - Medications Medications: Current Medications Acetaminophen (Tylenol 325mg Tab) 650 mg PO Q6 PRN PRN Reason: Pain, Mild (1-3) Last Admin: 08/20/18 22:41 Dose: 650 mg Albuterol Sulfate (Albuterol 0.042% Inhal [place] (1.25mg/3ml) Ud) 1.25 mg INH DAILY [facility] Amoxicillin/Clavulanate Potassium (Augmentin 875 Mg-125 Mg Tab) 1 tab PO Q12 MARIBEL; Protocol Benzocaine/Menthol (Cepacol Sore Throat) 1 chad PO Q3 PRN PRN Reason: Sore Throat Last Admin: 08/23/18 12:04 Dose: 1 chad Guaifenesin/Dextromethorphan (Mucinex-Dm 600-30 Mg) 1 tab PO BID [facility]IBEL Last Admin: 08/23/18 12:05 Dose: 1 tab Ondansetron HCl (Zofran Odt) 4 mg PO Q8H PRN PRN Reason: Nausea/Vomiting - Labs Labs: 08/20/18 14:27 08/20/18 14:27 - Constitutional Appears: No Acute Distress - Head Exam Head Exam: NORMAL INSPECTION - Eye Exam Eye Exam: Normal appearance - ENT Exam ENT Exam: Mucous Membranes Moist Additional comments: Oropharynx normal, no erythema or exudates, tonsills normal - Neck Exam Neck Exam: absent: Lymphadenopathy - Respiratory Exam Respiratory Exam: Clear to Ausculation Bilateral. absent: Rales, Wheezes - Cardiovascular Exam Cardiovascular Exam: REGULAR RHYTHM, +S1, +S2 - GI/Abdominal Exam GI & Abdominal Exam: Soft, Normal Bowel Sounds. absent: Tenderness - Extremities Exam Extremities Exam: Normal Inspection. absent: Pedal Edema - Neurological Exam Neurological Exam: Alert - Skin Skin Exam: Normal Color Assessment and Plan - Assessment and Plan (Free Text) Assessment: Assessment: Pt is a 37 y/o female with hx of a Incidental granuloma found on Cxray () and + Quanteferon sent to ED from chest clinic as patient reported cough, fever/chills, and weight loss in last 2 weeks. AFB Cx x1 negative, remainder of AFB cx pending. Sputum Cx growing GPC in chains. #Cough, non productive #Granuloma on Chest Xray, 5mm, no cavitary lesions #Quantiferon + -Pt may have underlying bacterial infection contributing to cough. Will start Augmentin 875mg BID, Mucinex, and Albuterol daily. -Need to assess if pt has Active vs Latent TB. AFB Culture x3 ordered-- F/u remaining AFB cx -C/W Airborne Isolation -ID on board, Dr. Bar -Monitor Respiratory Status Discussed case with Dr. Oviedo <Tanya Oviedo - Last Filed: 08/23/18 17:50> Objective - Vital Signs/Intake and Output Vital Signs (last 24 hours): Temp Pulse Resp BP Pulse Ox 98.1 F 66 18 107/64 100 08/23/18 15:35 08/23/18 15:35 08/23/18 15:35 08/23/18 15:35 08/23/18 15:35 - Medications Medications: Current Medications Acetaminophen (Tylenol 325mg Tab) 650 mg PO Q6 PRN PRN Reason: Pain, Mild (1-3) Last Admin: 08/20/18 22:41 Dose: 650 mg Albuterol Sulfate (Albuterol 0.042% Inhal [place] (1.25mg/3ml) Ud) 1.25 mg INH DAILY [facility] Last Admin: 08/23/18 15:41 Dose: 1.25 mg Amoxicillin/Clavulanate Potassium (Augmentin 875 Mg-125 Mg Tab) 1 tab PO Q12 [facility]IBEL; Protocol Benzocaine/Menthol (Cepacol Sore Throat) 1 chad PO Q3 PRN PRN Reason: Sore Throat Last Admin: 08/23/18 12:04 Dose: 1 chad Guaifenesin/Dextromethorphan (Mucinex-Dm 600-30 Mg) 1 tab PO BID [facility]IBEL Last Admin: 08/23/18 12:05 Dose: 1 tab Ondansetron HCl (Zofran Odt) 4 mg PO Q8H PRN PRN Reason: Nausea/Vomiting - Labs Labs: 08/20/18 14:27 08/20/18 14:27 Attending/Attestation - Attestation I have personally seen and examined this patient.: Yes I have fully participated in the care of the patient.: Yes I have reviewed all pertinent clinical information, including history, physical exam and plan: Yes
[2018-08-23 15:35] VITALS: BP 107/64; PULSE 66; TEMP 98.1; O2SAT 100
--- NOTE | 2018-08-23 18:18 | CP.PCM.DIS ---
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 Hospital Course - Lab Results Lab Results: Micro Results 08/22/18 07:00 Other: Please Indicate Mycobacterial Culture - Preliminary 08/22/18 07:00 Other: Please Indicate Mycobacterial Culture - Preliminary 08/22/18 16:07 Sputum Induced Gram Stain - Final 08/22/18 16:07 Sputum Induced Sputum Culture - Preliminary NORMAL ORAL SHANKAR 08/21/18 08:00 Other: Please Indicate Mycobacterial Culture - Preliminary Most Recent Lab Values WBC 9.6 K/uL (4.8-10.8) 08/20/18 14:27 RBC 4.62 Mil/uL (3.80-5.20) 08/20/18 14:27 Hgb 12.9 g/dL (12.0-16.0) 08/20/18 14:27 Hct 40.0 % (34.0-47.0) 08/20/18 14:27 MCV 86.7 fl (81.0-99.0) D 08/20/18 14:27 MCH 27.9 pg (27.0-31.0) 08/20/18 14:27 MCHC 32.2 g/dL (33.0-37.0) L 08/20/18 14:27 RDW 14.1 % (11.5-14.5) 08/20/18 14:27 Plt Count 333 K/uL (130-400) 08/20/18 14:27 MPV 7.6 fl (7.2-11.7) 08/20/18 14:27 Neut % (Auto) 65.1 % (50.0-75.0) 08/20/18 14:27 Lymph % (Auto) 27.3 % (20.0-40.0) 08/20/18 14:27 [place] % (Auto) 5.1 % (0.0-10.0) 08/20/18 14:27 Eos % (Auto) 1.9 % (0.0-4.0) 08/20/18 14:27 Baso % (Auto) 0.6 % (0.0-2.0) 08/20/18 14:27 Neut # (Auto) 6.2 K/uL (1.8-7.0) 08/20/18 14:27 Lymph # (Auto) 2.6 K/uL (1.0-4.3) 08/20/18 14:27 [place] # (Auto) 0.5 K/uL (0.0-0.8) 08/20/18 14:27 Eos # (Auto) 0.2 K/uL (0.0-0.7) 08/20/18 14:27 Baso # (Auto) 0.1 K/uL (0.0-0.2) 08/20/18 14:27 Sodium 138 mmol/l (132-148) 08/20/18 14:27 Potassium 4.8 MMOL/L (3.6-5.0) 08/20/18 14:27 Chloride 103 mmol/L (98-107) 08/20/18 14:27 Carbon Dioxide 26 mmol/L (22-30) 08/20/18 14:27 Anion Gap 14 (10-20) 08/20/18 14:27 BUN 11 mg/dl (7-17) 08/20/18 14:27 Creatinine 0.6 mg/dl (0.7-1.2) L 08/20/18 14:27 Est GFR ( Amer) > 60 08/20/18 14:27 Est GFR (Non-Af Amer) > 60 08/20/18 14:27 Random Glucose 90 mg/dL (65-105) 08/20/18 14:27 Calcium 9.3 mg/dL (8.4-10.2) 08/20/18 14:27 Total Bilirubin 0.5 mg/dl (0.2-1.3) 08/20/18 14:27 AST 71 U/L (14-36) H D 08/20/18 14:27 ALT 41 U/L (9-52) 08/20/18 14:27 Alkaline Phosphatase 88 U/L (38-126) 08/20/18 14:27 Total Protein 8.6 G/DL (6.3-8.2) H 08/20/18 14:27 Albumin 4.6 g/dL (3.5-5.0) 08/20/18 14:27 Globulin 3.9 gm/dL (2.2-3.9) 08/20/18 14:27 Albumin/Globulin Ratio 1.2 (1.0-2.1) 08/20/18 14:27 Hepatitis A IgM Ab Negative (NEGATIVE) 08/20/18 17:52 Hep Bs Antigen Negative (NEGATIVE) 08/20/18 17:52 Hep B Core IgM Ab Negative (NEGATIVE) 08/20/18 17:52 Hepatitis C Antibody Negative (NEGATIVE) 08/20/18 17:52 HIV 1&2 Antibody Screen Negative (NEGATIVE) 08/20/18 17:52 Influenza Typ A,B (EIA) Negative for flu a/b (NEGATIVE) 08/20/18 17:52 - Hospital Course Hospital Course: Pt is a 37 y/o female with hx of a Incidental granuloma found on Cxray (07/08/18) and + Quanteferon who was sent to ED from chest clinic as she was exhibiting signs of active TB. Pt had complained of cough, fevers, and weight loss in the last 2 weeks and was admitted to rule out active TB infection and remained in airborne isolation. Infectious disease was consulted, Dr. Bar. 3 AFB cultures were sent which resulted negative.Her sputum culture also grew GPC in clusters and given her worsening cough, she was treated with 1 day of Augment. She was discharged with strict instructions to f/u in chest clinic for tx of latent TB and to continue her Augment for total of 7 days. Pt will be called on saturday to inform her of her scheduled chest clinic appt. Discharge Exam - Head Exam Head Exam: NORMAL INSPECTION - Eye Exam Eye Exam: Normal appearance - ENT Exam ENT Exam: Mucous Membranes Moist, Normal Oropharynx - Neck Exam Neck exam: Normal Inspection - Respiratory Exam Respiratory Exam: Clear to PA & Lateral. absent: Rales, Rhonchi, Wheezes - Cardiovascular Exam Cardiovascular Exam: REGULAR RHYTHM - Extremities Exam Extremities exam: normal inspection - Neurological Exam Neurological exam: Alert, Oriented x3 - Psychiatric Exam Psychiatric exam: Normal Affect Discharge Plan - Discharge Medications Prescriptions: Amoxicillin/Clavulanate [Augmentin 875 MG-125 MG Tab] 1 tab PO Q12 #12 tab - Follow Up Plan Condition: FAIR Disposition: HOME/ ROUTINE Instructions: Viral Upper Respiratory Infection, Adult (DC), Cough, Adult (DC) Referrals: [facility] [place] [Outside] <PreetAmandaTanyadhara Salas - Last Filed: 08/23/18 18:30> Provider - Provider Date of Admission: 08/20/18 16:02 Attending physician: Sean Hart MD Consults: 08/20/18 16:04 Physician Consult Stat Comment: Consulting Provider: Rigoberto Bar Consulting Physician: Rigoberto Bar Reason for Consult: r/o pulmonary TB 08/20/18 22:29 Case Management Referral Routine Comment: Physician Instructions: Reason For Exam: Reason for Referral: Discharge Planning Hospital Course - Lab Results Lab Results: Micro Results 08/22/18 07:00 Other: Please Indicate Mycobacterial Culture - Preliminary 08/22/18 07:00 Other: Please Indicate Mycobacterial Culture - Preliminary 08/22/18 16:07 Sputum Induced Gram Stain - Final 08/22/18 16:07 Sputum Induced Sputum Culture - Preliminary NORMAL ORAL SHANKAR 08/21/18 08:00 Other: Please Indicate Mycobacterial Culture - Preliminary Most Recent Lab Values WBC 9.6 K/uL (4.8-10.8) 08/20/18 14:27 RBC 4.62 Mil/uL (3.80-5.20) 08/20/18 14:27 Hgb 12.9 g/dL (12.0-16.0) 08/20/18 14:27 Hct 40.0 % (34.0-47.0) 08/20/18 14:27 MCV 86.7 fl (81.0-99.0) D 08/20/18 14:27 MCH 27.9 pg (27.0-31.0) 08/20/18 14:27 MCHC 32.2 g/dL (33.0-37.0) L 08/20/18 14:27 RDW 14.1 % (11.5-14.5) 08/20/18 14:27 Plt Count 333 K/uL (130-400) 08/20/18 14:27 MPV 7.6 fl (7.2-11.7) 08/20/18 14:27 Neut % (Auto) 65.1 % (50.0-75.0) 08/20/18 14:27 Lymph % (Auto) 27.3 % (20.0-40.0) 08/20/18 14:27 [place] % (Auto) 5.1 % (0.0-10.0) 08/20/18 14:27 Eos % (Auto) 1.9 % (0.0-4.0) 08/20/18 14:27 Baso % (Auto) 0.6 % (0.0-2.0) 08/20/18 14:27 Neut # (Auto) 6.2 K/uL (1.8-7.0) 08/20/18 14:27 Lymph # (Auto) 2.6 K/uL (1.0-4.3) 08/20/18 14:27 [place] # (Auto) 0.5 K/uL (0.0-0.8) 08/20/18 14:27 Eos # (Auto) 0.2 K/uL (0.0-0.7) 08/20/18 14:27 Baso # (Auto) 0.1 K/uL (0.0-0.2) 08/20/18 14:27 Sodium 138 mmol/l (132-148) 08/20/18 14:27 Potassium 4.8 MMOL/L (3.6-5.0) 08/20/18 14:27 Chloride 103 mmol/L (98-107) 08/20/18 14:27 Carbon Dioxide 26 mmol/L (22-30) 08/20/18 14:27 Anion Gap 14 (10-20) 08/20/18 14:27 BUN 11 mg/dl (7-17) 08/20/18 14:27 Creatinine 0.6 mg/dl (0.7-1.2) L 08/20/18 14:27 Est GFR ( Amer) > 60 08/20/18 14:27 Est GFR (Non-Af Amer) > 60 08/20/18 14:27 Random Glucose 90 mg/dL (65-105) 08/20/18 14:27 Calcium 9.3 mg/dL (8.4-10.2) 08/20/18 14:27 Total Bilirubin 0.5 mg/dl (0.2-1.3) 08/20/18 14:27 AST 71 U/L (14-36) H D 08/20/18 14:27 ALT 41 U/L (9-52) 08/20/18 14:27 Alkaline Phosphatase 88 U/L (38-126) 08/20/18 14:27 Total Protein 8.6 G/DL (6.3-8.2) H 08/20/18 14:27 Albumin 4.6 g/dL (3.5-5.0) 08/20/18 14:27 Globulin 3.9 gm/dL (2.2-3.9) 08/20/18 14:27 Albumin/Globulin Ratio 1.2 (1.0-2.1) 08/20/18 14:27 Hepatitis A IgM Ab Negative (NEGATIVE) 08/20/18 17:52 Hep Bs Antigen Negative (NEGATIVE) 08/20/18 17:52 Hep B Core IgM Ab Negative (NEGATIVE) 08/20/18 17:52 Hepatitis C Antibody Negative (NEGATIVE) 08/20/18 17:52 HIV 1&2 Antibody Screen Negative (NEGATIVE) 08/20/18 17:52 Influenza Typ A,B (EIA) Negative for flu a/b (NEGATIVE) 08/20/18 17:52 Attending/Attestation - Attestation I have personally seen and examined this patient.: Yes I have fully participated in the care of the patient.: Yes I have reviewed all pertinent clinical information, including history, physical exam and plan: Yes Notes (Text): 1. Latent TB 2. URI - AFB x 3 negative in Sputum - Augmentin 875 mg bid for URI - ff up at the Chest Clinic to be started on INH for tx of Latent TB
[2018-08-23] MEDS ORDERED: Amoxicillin-Clav 875-125 mg Tab PO SCH (21:00)
== END 2018-08-23 18:50 | disposition home or self-care (01) | DRG 113 ==
LOC: H.ER 13:50 → H.ERHOLD 16:02 → H.TEL 21:43
DX: J06.9 Acute upper respiratory infection, unspecified (principal); I10 Essential (primary) hypertension; G89.29 Other chronic pain; R76.12 Nonspecific reaction to cell mediated immunity measurement of gamma interferon antigen response without active tuberculosis

== ENCOUNTER 2018-10-17 20:35 | Emergency (ER) | payer SELFPAY ==
[2018-10-17 20:35] VITALS: BMI 23.4
[2018-10-17 20:44] VITALS: BP 106/61; PULSE 66; RESP 16; TEMP 98.1; O2SAT 99
[2018-10-17] MEDS ORDERED: Alum-Mag Hydrox-Simethicone Susp (30 mL) PO ONE (21:51)
--- NOTE | 2018-10-17 21:54 | ED PDOC ---
HPI: Abdomen Time Seen by Provider: 10/17/18 21:52 Chief Complaint (Nursing): Abdominal Pain Chief Complaint (Provider): abdominal pain History Per: Patient (38 y/o female here with epigastric pain since this morning associated with nausea. Patient states she has been taking Naproxen for shoulder pain and attempted to take for abdominal pain but feels symptoms worsened. Denies any fevers or chills. NO surgical hx.) Past Medical History Reviewed: Historical Data, Nursing Documentation, Vital Signs Vital Signs: Last Vital Signs Temp 98.1 F 10/17/18 20:44 Pulse 66 10/17/18 20:44 Resp 16 10/17/18 20:44 BP 106/61 10/17/18 20:44 Pulse Ox 99 10/17/18 20:44 - Medical History PMH: Cardia Arrhythmia (Tachycardia, as per patient however bradycardia on EKG), HTN Denies: Chronic Kidney Disease - Family History Family History: States: Unknown Family Hx - Home Medications Home Medications: Ambulatory Orders Medication Instructions Recorded Multivitamin [Multi-Vitamin Daily] 1 tab PO DAILY 08/20/18 Vitamin B Complex [Super B-50 1 cap PO DAILY 08/20/18 Complex] Amoxicillin/Clavulanate [Augmentin 1 tab PO Q12 #12 tab 08/23/18 875 MG-125 MG Tab] guaiFENesin/Dextromethorphan 1 tab PO BID tab 08/23/18 [Mucinex-DM 600-30 mg] Pantoprazole Sodium [Protonix] 40 mg PO DAILY #7 ect 10/17/18 Ranitidine HCl [Zantac 75] 75 mg PO BID PRN #10 tablet 10/17/18 - Allergies Allergies/Adverse Reactions: Allergies Allergy/AdvReac Type Severity Reaction Status Date / Time No Known Allergies Allergy Verified 10/17/18 20:43 Review of Systems ROS Statement: Except As Marked, All Systems Reviewed And Found Negative Physical Exam - Reviewed Nursing Documentation Reviewed: Yes Vital Signs Reviewed: Yes - Physical Exam Appears: Positive for: Well, Non-toxic, No Acute Distress Head Exam: Positive for: ATRAUMATIC, NORMAL INSPECTION, NORMOCEPHALIC Skin: Positive for: Normal Color, Warm, DRY Eye Exam: Positive for: EOMI, Normal appearance, PERRL ENT: Positive for: Normal ENT Inspection Neck: Positive for: Normal, Painless ROM Cardiovascular/Chest: Positive for: Regular Rate, Rhythm Respiratory: Positive for: CNT, Normal Breath Sounds Gastrointestinal/Abdominal: Positive for: Normal Exam, Soft, Tenderness (epigastric tenderness) Back: Positive for: Normal Inspection Extremity: Positive for: Normal ROM Neurological/Psych: Positive for: Awake, Alert, Normal Tone - Laboratory Results Urine POC: Negative Urine dip results: Negative for: Leukocyte Esterase, Blood, Nitrate, Ketones, Glucose, Bilirubin, Protein - ECG O2 Sat by Pulse Oximetry: 99 - Progress ED Course And Treament: maalox 30 ml po x 1 dose/lidocaine viscous 2% 5 ml po x 1 dose Patient re-evaluated. Feels improved. Disposition - Clinical Impression Clinical Impression: Gastritis - Patient ED Disposition Is Patient to be Admitted: No - Disposition Referrals: Oneil Nava MD [Staff Provider] - Disposition: Routine/Home Disposition Time: 23:21 Condition: FAIR Prescriptions: Pantoprazole Sodium [Protonix] 40 mg PO DAILY #7 ect Ranitidine HCl [Zantac 75] 75 mg PO BID PRN #10 tablet PRN Reason: Pain, Moderate (4-7) Instructions: Gastritis (DC), Ulcer and Gastritis Diet Forms: [facility] ED School/Work Excuse Print Language: HUNGARIAN
[2018-10-17] MEDS ORDERED: Alum-Mag Hydrox-Simethicone Susp (30 mL) ONE (22:25)
== END 2018-10-17 23:32 | disposition home or self-care (01) ==
LOC: H.ER 20:35
DX: K29.70 Gastritis, unspecified, without bleeding (principal); I10 Essential (primary) hypertension